=== PATIENT | female | born 1945 | race Caucasian/White ===

== ENCOUNTER 2024-09-17 15:16 | Emergency (ER) | payer OTHER, SELFPAY ==
[2024-09-17 15:28] VITALS: BP 151/85
[2024-09-17 15:45] LABS: % Basophils 0.6 % (0-2); % Eosinophils 2.1 % (0-6); % Immature Granulocytes 0.2 % (0-0.5); % Lymphocytes 21.1 % (20.5-51.1); % Monocytes 5.3 % (1.7-9.3); % Neutrophils 70.7 % (42.2-75.2); Absolute Basophils 0.1 10^3/uL (0-0.2); Absolute Eosinophils 0.2 10^3/uL (0-0.7); Absolute Lymphocytes 1.9 10^3/uL (1.2-3.4); Absolute Monocytes 0.5 10^3/uL (0.1-0.6); Absolute Neutrophils 6.4 10^3/uL (1.4-6.5); Hematocrit 40.3 % (37.0-47.0); Hemoglobin 13.6 g/dL (12.0-16.0); Mean Corp Hgb Conc. 33.7 g/dL (33.0-37.0); Mean Platelet Volume 9.8 fL (7.4-10.4); Nucleated Red Blood Cells % 0 %; Platelet Count 294 10^3/uL (130-400); Red Blood Cell Count 4.53 10^6/uL (4.20-5.40); Red Cell Dist. Width 12.5 % (11.5-14.5)
[2024-09-17 16:04] LABS: ALT (SGPT) 14 U/L (0-35); AST (SGOT) 20 U/L (14-36); Albumin 4.1 g/dl (3.5-5.0); Alkaline Phosphatase 102 U/L (38-126); Carbon Dioxide 29 mmol/L (22-30); Glucose 117 mg/dl (70-99); Total Bilirubin 0.3 mg/dl (0.2-1.3); eGFR > 60.00
[2024-09-17 16:05] LABS: Blood Urea Nitrogen 11 mg/dl (7-17); Chloride 100 mmol/L (98-107); Potassium 3.9 mmol/L (3.5-5.1); Sodium 133 mmol/L (135-145); Total Protein 6.9 g/dl (6.3-8.2)
[2024-09-17 16:38] VITALS: BMI 25.8
--- NOTE | 2024-09-17 16:45 | ED.GENMED ---
History of Present Illness
General
Chief Complaint: Blood Pressure Problem
Source: patient and spouse
Exam Limitations: none
Time Seen by Provider: 09/17/24 16:44
History of Present Illness
History of Present Illness:
Patient woke up this morning feels mildly nauseous. However the last 3 days she has had 3 brief episodes of near syncope. She was standing in her kitchen late morning felt lightheaded. Not describing disequilibrium or vertigo. No diaphoresis no
chest pain no shortness of breath. Symptoms last seconds. She checked her blood pressure shortly after was mildly elevated systolically. The last 2 episodes this happened had normal blood pressures. She also admits to significant anxiety
especially over losing multiple family. Currently she feels fine.
Past History
Past History
ED Past Medical History: Cancer (Thyroid, lung), Hypercholesterolemia and Other (History of diverticulitis, thyroid cancer); Negative HTN, IDDM or NIDDM
ED Past Surgical History: Cholecystectomy, Gynecological (hysterectomy), Orthopedic (Right hip replacement) and Other (Thyroidectomy)
Social History
Tobacco: Non-smoker
Drug: None
Personal:
Living: with family
Employment: Retired
Review of Systems
Review of Systems
All Other Systems: Not applicable
Respiratory: Denies trouble breathing
Cardiac: Denies chest pain or palpitations
ABD/GI: Reports no symptoms
Phy Exam
Physical Exam
Physical Exam:
GENERAL: Alert and oriented in no apparent distress
EYE: Orbits normal.
NECK: Supple, no carotid bruit
ENT: Pharynx without erythema
CARDIAC: Regular rate and rhythm without any obvious murmurs.
LUNGS: Clear breath sounds,normal
ABDOMEN: Soft, without focal tenderness or distention
NEUROLOGICAL: Alert and oriented , cranial nerves II through XII intact. Apcffv-ie-grzo normal. Speech normal.
SKIN: Warm and dry, no rash or lesion, no discoloration, skin intact.
MUSCULOSKELETAL: No edema,no deformity.Good color
PSYCH: Pleasant. Anxious. Crying and upset when talking about her family
Course
Orders/Labs/Results
Orders:
Orders
09/17/24 15:18
Electrocardiogram (*1) Urgent
Reason for Study: Vertigo / Dizzy
EKG- Treatment ONCE
09/17/24 15:34
Complete Blood Count/With Diff Urgent
Comprehensive Metabolic Panel Urgent
09/17/24 16:58
CT Head W/o Iv Contrast Urgent
Comment:
Reason For Exam: Mild headache/dizziness
Cardiac Monitoring- Treatment ONCE
IV Insert/Care/Rem.- Treatment PRN
09/17/24 17:16
Troponin I Urgent
Abnormal Lab Results
09/17/24
15:34
Sodium 133 L mmol/L
(135-145)
Glucose 117 H mg/dl
(70-99)
09/17/24 15:34
09/17/24 15:34
Vital Signs
Initial and Last Documented VS:
Initial Vital Signs
Temp Pulse Resp BP Pulse Ox
98.7 F 82 16 151/85 98
09/17/24 15:28 09/17/24 15:28 09/17/24 15:28 09/17/24 15:28 09/17/24 15:28
Last Documented Vital Signs
Temp Pulse Resp BP Pulse Ox
98.7 F 69 16 139/73 95
09/17/24 15:28 09/17/24 18:00 09/17/24 15:28 09/17/24 18:00 09/17/24 18:00
MDM/Problems Addressed
Differential Diagnosis Includes:
Patient describing very brief episodes of lightheadedness. Symptoms last seconds. She denies chest pain shortness of breath during these episodes. She also denies disequilibrium vertigo etc. Her neurologic exam is normal. Low suspicion that we
will find a definitive etiology for this. Workup in progress
*Radiology
Radiology exam reviewed: radiology read reviewed (Negative CT scan)
*Pulse Oximetry
Patient hypoxic: no
*EKG
Interpreted by ED Provider?: Yes
Interpretation: normal
Comparison EKG: no changes
Heart Rate: 77
Rate: normal
Rhythm: sinus
Lyon: normal axis
Interval: normal interval
QRS Pattern: normal QRS
Ischemia: non-specific ST changes
*Critical Care Note
Total Time (30-74mins, 75-104mins- exclusive of procedures): Not Applicable
Update Note
Update Note:
Patient is remained stable and nontoxic. Exam unremarkable. Neurologic exam unremarkable. No arrhythmias here. states these symptoms last seconds. Discussed inpatient versus outpatient observation. I am comfortable with outpatient
observation as is the family.
ED Attending Note
-
Portions of this chart may have been created with voice recognition software.� Occasional wrong word or��sound alike� substitutions may have occurred due to the inherent limitations of voice recognition software.
Discharge Plan
Departure
Patient Disposition: Home (Routine Discharge)
Date of Disposition: 09/17/24
Time of Disposition: 19:24
Patient with high blood pressure during this ER visit?: Yes
Discharge Problem:
Brief near syncope
Instructions: Near Fainting (DC), BLOOD PRESSURE
Prescriptions:
No Action
levothyroxine 112 MCG tablet
110 mcg PO DAILY@0600
Centrum Silver 1 EACH tablet
1 ea PO DAILY
gabapentin 300 MG capsule
300 mg PO DAILY@1200
lorazepam 1 MG tablet
1.5 mg PO TIDPRN PRN (Reason: breakthrough anxiety)
quetiapine 25 MG tablet
25 mg PO DAILY@2000
venlafaxine 75 mg Tablet
75 mg PO DAILY
pravastatin 40 mg Tablet
40 mg PO DAILY
pantoprazole 20 mg Tablet,Delayed Release (Dr/Ec)
40 mg PO DAILY
Referrals:
Isael Wasserman DO [Family Provider] - Follow up in 2-3 days
Interventions
Interventions:
*Risk Screen - Suicide Last Done: 09/17/24 15:30
*General Assessment Last Done: 09/17/24 16:45
*Neglect/Abuse Screening Last Done: 09/17/24 15:30
ED- Fall Risk Assessment Last Done: 09/17/24 16:44
*ED COVID-19 Vaccine History Last Done: 09/17/24 16:45
ED- Cardiac Assessment Last Done: 09/17/24 16:44
ED- Neurological Assessment Last Done: 09/17/24 16:44
ED- Pulmonary Assessment Last Done: 09/17/24 16:44
Discharge Date and Time
Print Language: GERMAN
[2024-09-17 17:55] LABS: Troponin I < 0.012 ng/ml
[2024-09-17 18:00] VITALS: BP 139/73
[2024-09-17 19:21] VITALS: BP 144/76
== END 2024-09-17 19:58 | disposition home or self-care (01) ==
LOC: EMR 15:16
PROVIDERS: Emergency Medicine; EMERGENCY PHYSICIAN Emergency Medicine; FAMILY PHYSICIAN Family Medicine
DX: R55 Syncope and collapse (principal); F41.9 Anxiety disorder, unspecified; E78.00 Pure hypercholesterolemia, unspecified; Z85.850 Personal history of malignant neoplasm of thyroid; Z90.49 Acquired absence of other specified parts of digestive tract; Z90.710 Acquired absence of both cervix and uterus
CPT/HCPCS: 99284; 70450; 80053; 84484; 85025; 93005

== ENCOUNTER 2024-10-25 10:03 | Inpatient (IN) | payer OTHER, SELFPAY ==
[2024-10-23 22:17] VITALS: BP 99/65
[2024-10-23 22:19] VITALS: BP 99/65
[2024-10-23 22:29] VITALS: BMI 25.4
[2024-10-23 22:47] LABS: % Basophils 0.6 % (0-2); % Eosinophils 1.1 % (0-6); % Immature Granulocytes 0.3 % (0-0.5); % Lymphocytes 22.1 % (20.5-51.1); % Monocytes 5.8 % (1.7-9.3); % Neutrophils 70.1 % (42.2-75.2); Absolute Basophils 0.1 10^3/uL (0-0.2); Absolute Eosinophils 0.1 10^3/uL (0-0.7); Absolute Monocytes 0.5 10^3/uL (0.1-0.6); Absolute Neutrophils 6.3 10^3/uL (1.4-6.5); Hematocrit 35.7 % (37.0-47.0); Hemoglobin 12.3 g/dL (12.0-16.0); Mean Corp Hgb Conc. 34.5 g/dL (33.0-37.0); Mean Corpuscular Hgb 30.1 pg (27.0-31.0); Mean Corpuscular Volume 87.5 fL (81.0-99.0); Mean Platelet Volume 10.5 fL (7.4-10.4); Nucleated Red Blood Cells % 0 %; Platelet Count 237 10^3/uL (130-400); Red Blood Cell Count 4.08 10^6/uL (4.20-5.40); Red Cell Dist. Width 12.8 % (11.5-14.5)
[2024-10-23 22:59] LABS: ALT (SGPT) 12 U/L (0-35); AST (SGOT) 18 U/L (14-36); Albumin 3.8 g/dl (3.5-5.0); Alkaline Phosphatase 74 U/L (38-126); Blood Urea Nitrogen 11 mg/dl (7-17); Calcium 8.7 mg/dl (8.4-10.2); Carbon Dioxide 23 mmol/L (22-30); Chloride 100 mmol/L (98-107); Estimated Creatinine Clearance 52 ml/min; Glucose 139 mg/dl (70-99); Lipase 47 U/L (23-300); Potassium 3.5 mmol/L (3.5-5.1); Sodium 131 mmol/L (135-145); Total Bilirubin 0.8 mg/dl (0.2-1.3); eGFR > 60.00
[2024-10-23 23:00] VITALS: BP 112/60
[2024-10-23 23:04] LABS: Urine Albumin 2+ (Neg - Trace); Urine Bilirubin Negative (Negative); Urine Character Clear (Clear); Urine Color Yellow; Urine Glucose Negative (Negative); Urine Ketone 2+ (Negative); Urine Leukocyte Negative (Negative); Urine Nitrite Negative (Negative); Urine Occult Blood Negative (Negative); Urine Urobilinogen Negative (Neg - 1+); Urine pH 6.5 (5.0-9.0)
[2024-10-23 23:13] LABS: Urine Hyaline Cast >15 /LPF (0-2)
[2024-10-23 23:14] LABS: Urine Bacteria Few (Negative); Urine Red Blood Cell 0-2 /HPF (0-2)
[2024-10-24] VITALS (23 sets, daily range): BP systolic 94–128; BP diastolic 48–87; PULSE 71–75; BMI 25.3
[2024-10-24] MEDS: TORADOL 15 MG IV (00:47)
[2024-10-24] MEDS: NSS 1000 IV ×2 (00:47→04:54)
[2024-10-24] MEDS: ATIVAN 1 MG IV (01:41)
--- NOTE | 2024-10-24 01:49 | ED.GENMED ---
History of Present Illness
General
Chief Complaint: Abdominal Symptoms
Source: patient and spouse
Exam Limitations: none
Time Seen by Provider: 10/24/24 00:08
Nursing documentation reviewed up to this point in time: agreed with
History of Present Illness
History of Present Illness:
Patient to ED with complaint of upper abdominal pain. Pain started approx 2 weeks ago and continues to worsen. She has a known pancreatic cyst and is concerned that she now has cancer. SHe participates yearly surveillance of the cyst, reports no
changes in 2 years (Last MRI approx 3 mos ago). Spouse states pateint has been extremely anxious. Has not been eating or drinking for the past few days. Tonight reports vomiting and diarrhea. Denies fever/chills. Brought to ED by spouse for
eval.
Past History
Past History
ED Past Medical History: Cancer (Thyroid, lung), Hypercholesterolemia and Other (History of diverticulitis, thyroid cancer); Negative HTN, IDDM or NIDDM
ED Past Surgical History: Cholecystectomy, Gynecological (hysterectomy), Orthopedic (Right hip replacement) and Other (Thyroidectomy)
Social History
Tobacco: Non-smoker
Drug: None
Personal:
Living: with family
Employment: Retired
Review of Systems
Review of Systems
Allergies reviewed?: Yes
All Other Systems: ROS reviewed and negative except as documented in HPI and ROS
Constitutional: Reports no symptoms
EENT: Reports no symptoms
Respiratory: Reports no symptoms
Cardiac: Reports no symptoms
ABD/GI: Reports abdominal pain, nausea, vomiting and diarrhea
: Reports no symptoms
Musculoskeletal: Reports no symptoms
Skin: Reports no symptoms
Neurological: Reports no symptoms
Psychiatric: Reports depression and anxiety
Phy Exam
General Physical Exam
General Presentation: moderate distress
General age: appears stated age
General Skin: warm and dry
General Habitus: normal
General Mental: alert
Cardiovascular Exam
Cardiovascular Exam: regular rate/rhythm and no edema
Pulmonary Exam
Pulmonary Exam: lungs clear and no respiratory distress
Gastrointestinal Exam
Gastrointestinal Exam: normal bowel sounds, soft, no organomegaly, no pulsatile mass, non distended and no cva tenderness
Palpation: left upper quadrant: Moderate tenderness, left lower quadrant: No tenderness, right upper quadrant: Moderate tenderness and right lower quadrant: No tenderness
Musculoskeletal Exam
Musculoskeletal Exam: full ROM and neuro vasc intact
Skin Exam
Skin Exam: normal color, warm/dry and no rash
Psychiatric Exam
Psychiatric Exam: normal mood/affect
Course
Orders/Labs/Results
Orders:
Orders
10/23/24 22:17
EKG [Electrocardiogram (*1)] Urgent
Reason for Study: Fatigue / Weakness
10/23/24 22:18
EKG- Treatment ONCE
IV Insert/Care/Rem.- Treatment PRN
Straight cath- Treatment ONCE
10/23/24 22:36
Complete Blood Count/With Diff Urgent
Comprehensive Metabolic Panel Urgent
Lipase Urgent
UA Reflex to Culture [Urinalysis Reflex To Culture] Urgent
Date Specimen was Collected: 10/23/24
Time Specimen was Collected: 22:34
Urine Microscopic Reflex Cult Urgent
10/24/24 00:34
CT Abd/pelvis W Iv Cont Urgent
Comment:
Reason For Exam: upper abd. pain. known pancreatic cyst
10/24/24 00:36
0.9% Sodium Chloride 1000 ml [Nss] 1,000 ml IV BOLUS
Ketorolac [Toradol] 15 mg IV NOW STA
10/24/24 01:38
Lorazepam [Ativan] 2 mg .ROUTE .STK-MED ONE
10/24/24 01:40
Lorazepam [Ativan] 1 mg IV NOW STA
10/24/24 02:45
Norovirus by PCR Urgent
SHELIA Source: Feces/Stool
Specimen Description:
STOOL [C difficile Antigen & Toxins] Urgent
SHELIA Source: Feces/Stool
Specimen Description:
Stool Culture Urgent
SHELIA Source: Feces/Stool
Specimen Description:
10/24/24 04:08
Admit/Transfer Patient As Directed
Co-Sign Provider:
Level of Care: Observation services
Assign to:: Medical/Surgical
Physician / Group: hospitalist
Diagnosis: gastritis
PRN Pain Medication Management As Directed
May give lesser potent ordered pain med per pt: Yes
preference::
Protocol:: Medication orders for pain may be administered in a
manner that supports deferring to patient preference
when the pt is:
- Requesting an ordered lesser potent pain medication.
Least to most potent pain medications are defined
as: acetaminophen < NSAID < tramadol < opioids
(morphine, oxycodone, hydromorphone).
- Requesting a lesser dose of the same medication IF
ORDERED.
- Requesting a less intrusive route of administration
if both routes are prescribed by the provider (PO <
IV).
10/24/24 04:09
Code Status As Directed
Resuscitation Status: Full Code
10/24/24 04:13
Famotidine [Pepcid] 20 mg IV NOW STA
Ondansetron Injectable [Zofran] 4 mg IV NOW STA
10/24/24 04:14
Mag Hydrox/Al Hydrox/Simeth [Maalox] 30 ml PO NOW STA
10/24/24 04:29
0.9% Sodium Chloride 1000 ml [Nss] 1,000 ml IV 80 mls/hr
Acetaminophen [Tylenol] 650 mg PO Q4HPRN PRN
Docusate W/Senna [Senokot-S] 1 tablet PO BIDPRN PRN
Lorazepam [Ativan] 2 mg PO DAILY PRN
Mag Hydrox/Al Hydrox/Simeth [Maalox] 30 ml PO Q6HPRN PRN
Ondansetron Injectable [Zofran] 4 mg IV Q6HPRN PRN
10/24/24 04:29
Activity As Directed
Activity Level: With Assistance
Orthostatic Vital Signs As Directed
Orthostatic VS Frequency: Daily
Vital Signs As Directed
Frequency: Per unit guidelines
Pt Eval And Treat Routine
Activity Level: With Assistance
DX Deep Vein Thrombosis Video Routine
10/24/24 05:00
Flush (0.9% Sodium Chloride) [Flush (Nss)] See Dose Instructions IV PER PROTOCOL
10/24/24 05:04
Basic Metabolic Panel IN AM
TSH IN AM
10/24/24 Breakfast
Regular
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
Levothyroxine [Synthroid] 100 mcg PO DAILY @ 0600
10/24/24 08:00
Pantoprazole [Protonix] 40 mg PO DAILY
Pravastatin Sodium [Pravachol] 40 mg PO DAILY
Venlafaxine [Effexor] 112.5 mg PO DAILY
10/24/24 18:00
Enoxaparin Sodium [Lovenox] 40 mg SC QPM
10/24/24 20:00
Quetiapine Fumarate [Seroquel] 25 mg PO DAILY@2000
10/24/24 22:00
Famotidine [Pepcid] 20 mg PO HS
Abnormal Lab Results
10/23/24
22:36
RBC 4.08 L 10^6/uL
(4.20-5.40)
Hct 35.7 L %
(37.0-47.0)
MPV 10.5 H fL
(7.4-10.4)
Sodium 131 L mmol/L
(135-145)
Glucose 139 H mg/dl
(70-99)
Total Protein 6.0 L g/dl
(6.3-8.2)
Urine Ketones 2+ A
(Negative)
Urine Bacteria (Reflex) Few A
(Negative)
Urine Albumin (Reflex) 2+ A
(Neg - Trace)
10/23/24 22:36
10/23/24 22:36
Vital Signs
Initial and Last Documented VS:
Initial Vital Signs
Pulse Resp Pulse Ox
64 16 97
10/23/24 22:11 10/23/24 22:11 10/23/24 22:11
Last Documented Vital Signs
Temp Pulse Resp BP Pulse Ox
98.0 F 66 18 128/60 95
10/24/24 23:18 10/24/24 23:18 10/24/24 23:18 10/24/24 23:18 10/24/24 23:18
*Radiology
Radiology exam reviewed: radiology read reviewed
*Pulse Oximetry
Patient hypoxic: no
*Critical Care Note
Total Time (30-74mins, 75-104mins- exclusive of procedures): Not Applicable
Update Note
Update Note:
Patient to ED iwth complaint of upper abd. pain, n/v/d. Denies fever/chills. SHe remains afebrile. CT report reviewed - colitis. Pancreatic cyst is unchanged. Discussed findings with patient. Given IVF in ED with improvement in blood
pressure. Willl admit to hospitalist service for dehydration, weakness, colitis.
ED Attending Note
-
Portions of this chart may have been created with voice recognition software.� Occasional wrong word or��sound alike� substitutions may have occurred due to the inherent limitations of voice recognition software.
Discharge Plan
Departure
Patient Disposition: Admit
Date of Disposition: 10/24/24
Time of Disposition: 02:42
Presentation/result/management discussed w/ accepting MD/DO: Hospitalist
Patient with high blood pressure during this ER visit?: No
Condition: Fair
Covid-19: Not Applicable
Discharge Problem:
Weakness, Colitis, Dehydration
Interventions
Interventions:
*Risk Screen - Suicide Last Done: 10/23/24 22:19
*General Assessment Last Done: 10/23/24 22:30
*Neglect/Abuse Screening Last Done: 10/23/24 22:30
*ED- Fall Risk Assessment Last Done: 10/23/24 22:30
*ED COVID-19 Vaccine History Last Done: 10/23/24 22:30
*Nursing Disposition Last Done: 10/24/24 15:45
LI-Ejlpli-Vjejsfoffa Assessment Last Done: 10/24/24 08:25
Discharge Date and Time
Discharge Date/Time: 10/24/24 15:46
--- NOTE | 2024-10-24 03:52 | HPS.HSE ---
Family Physician
-
Family Physician: Isael Wasserman
Chief Complaint
-
abd pain, nausea and vomiting and weakness
History of Present Illness
This is a 79-year-old female with past medical history of hypothyroid, anxiety and depression, hyperlipidemia and GERD who was diagnosed with a pancreatic cyst several years ago and recently had enlargement in the cyst with pending workup presents
to the emergency department from home with 1 day of vomiting in the setting of several days of nausea.
Patient came to the emergency department by spouse because she felt very weak and could not get up. Spouse found collapsed while on the commode and could not get off so EMS was called and patient was brought to the emergency department. Patient
does have reported that she had 2 episode of clear vomitus over the last 24 hours. She says she has not had vomiting before. She denies diarrhea. She reports some mild epigastric discomfort without any radiation. She reports chronic nausea that
has been present for some time. She stated that due to her recent diagnosis of enlarged primary cyst on CT scan she appears to have decreased appetite and increased anxiety. Psychiatrist increased her venlafaxine to 150 mg daily due to episodes of
breakthrough anxiety. Patient reported that she started having the vomiting after increasing the dose and she was told to decrease it yesterday.
She denies fevers chills. She denies any urinary symptoms. She denies any other changes in medications. She denies any numbness tingling in the lower extremities or upper extremities. She denies any lower extremity swelling. She denies any new
back pain.
In the emergency department she was afebrile, blood pressure was 99/60 with a pulse of 64. CBC was unremarkable. Electrolytes notable for a sodium of 131 but otherwise unremarkable. She has normal BUN and creatinine and normal glucose. UA was
unremarkable. LFTs and lipase within normal limits. CT A/P with wall thickening in the colon is likely due to underdistention however correlate for any signs of colitis. Colonic diverticulosis without evidence of diverticulitis. No bowel
obstruction, normal appendix. Unchanged cyst in the pancreas.
Medical History
Past Medical History
Past Medical History: Reports Cancer (History of lung cancer status post right lower lobectomy 2017, history of thyroid cancer status post thyroidectomy 2014), Hypothyroidism and Psychiatric (Anxiety/depression)
Past Surgical History: Reports Cholecystectomy, Gynocological (Complete hysterectomy), Orthopedic (Right total hip arthroplasty) and Other (Lower right lobectomy, and left breast biopsy, diabetes septum surgery, thyroidectomy)
Social History
Tobacco: Non-smoker
Alcohol: None
Drug: None
Personal:
Living: With Family
Family History
Family History: Not pertinent
Allergies / Home Medications
Allergies reflects when Allergies were last updated in [employer].
Home Medications with original date entered in [employer]
Allergy/Medication List:
Allergies
Allergy/AdvReac Type Severity Reaction Status Date / Time
hydrocodone Allergy Nausea / Verified 01/02/22 12:25
Vomiting
levofloxacin [From Levaquin] Allergy Unknown Verified 01/02/22 12:25
morphine Allergy Nausea / Verified 01/02/22 12:25
Vomiting
paroxetine [From Paxil] AdvReac anxiety Verified 01/02/22 12:25
Home Medications
xtsondjf-dsg-vnekj acid 0.4 mg-lycopene 300 mcg-lutein 250 mcg tablet (Centrum Silver) 1 ea PO DAILY 10/31/16
lorazepam 1 mg tablet 2 mg PO PRN PRN breakthrough anxiety 05/18/18
quetiapine 25 mg tablet 25 mg PO DAILY@199905/18/18
pantoprazole 20 mg tablet,delayed release 40 mg PO DAILY 09/17/24
pravastatin 40 mg tablet 40 mg PO DAILY 09/17/24
venlafaxine 75 mg tablet 112.5 mg PO DAILY 09/17/24
cholecalciferol (vitamin D3) 50 mcg (2,000 unit) tablet (Vitamin D3) 2,000 unit DAILY 10/24/24
d-mannose 500 mg capsule 500 mg PO DAILY 10/24/24
levothyroxine 100 mcg tablet 100 mcg DAILY 10/24/24
Review of Systems
-
History Source: Patient
Constitutional: Reports Fatigue
EENT: Reports No Symptoms
Respiratory: Reports No Symptoms
Cardiac: Reports No Symptoms
Abdomen/GI: Reports Abdominal Pain, Nausea and Vomiting; Denies Diarrhea or Constipated
: Denies Dysuria, Frequency or Flank Pain
Musculoskeletal: Reports No Symptoms
Skin: Reports No Symptoms
Neurological: Reports No Symptoms
Endocrine: Reports No Symptoms
Hematologic/Lymphatic: Reports No Symptoms
Psych: Reports No Symptoms
Physical Exam
Vital Signs
Vital Signs
Temp Pulse Resp BP Pulse Ox
97 F 64 16 99/57 92
10/23/24 22:19 10/24/24 03:00 10/24/24 03:00 10/24/24 03:00 10/24/24 03:00
Physical Exam
General: Well Developed, No Apparent Distress, Comfortable and Conversant
HEENT: NormoCephalic, Anicteric, Moist mucous membranes, Atraumatic, PERRLA and No Ptosis
Respiratory: Clear
Cardiac: S1/S2 and Regular Rhythm
Breast: Deferred by me
GI: Non Tender, Non Distended and Normal Bowel Sounds
Rectal: Deferred by Provider
Genito-urinary: Deferred by me
Musculoskeletal: No Cyanosis and No Edema
Skin: Warm and Dry
Neuro: AO x 3, Cranial Nerves Intact, No Sensory Deficits and Other (4/5 strength in bilateral hips, normal strength in knees and ankles. Normal upper extremity strength); No Slurred Speech or Facial Droop
Hematologic/Lymphatic: No Lymphadenopathy
Psych: Depressed
Laboratory Results
-
10/23/24 22:36
10/23/24 22:36
Laboratory Results
Total Bilirubin 0.8 mg/dl (0.2-1.3) 10/23/24 22:36
AST 18 U/L (14-36) 10/23/24 22:36
ALT 12 U/L (0-35) 10/23/24 22:36
Alkaline Phosphatase 74 U/L (38-126) 10/23/24 22:36
Lipase 47 U/L (23-300) 10/23/24 22:36
Data Reviewed
-
CT Scan: Report Reviewed by me
Lab Data: Labs Reviewed by me
Old Records: Reviewed
Impression/Plan
-
IMPRESSION:
79 y.o with ongoing anxiety depression in setting of concern for another cancer after going through prior cancers. She reports that she has a pancreatic cyst that was enlarged about 2 years ago and has a pending endoscopic biopsy given sister had
pancreatic cancer and recently. She had increased dose of her venlafaxine with worsening vomiting (vomited x 2) then weakness tonight. Her labs are notable for Na of 131 but otherwise unremarkable. U/A negative. CT scan shows no
change in pancreatic cystic lesion and no other acute intraabdominal finding. She denies diarrhea. Suspect depression with some dehydration. She is not interested in PT as she had prior PT.
PLAN:
1. Nausea/Vomiting - Suspect gastritis posssibly exacerbated by venlafaxine
- check ecg
- admit to med/surg observation
- antiemetics, H2 blockade
- continue ppi
- pain control
- diet as tolerated
- IV fluids for now
- reduced dose of venlafaxine to 112.5 for now per her outpatient psychiatric
2. Weakness - suspect dehydration possibly induced by nausea and loss of appetite from depression. No signs of acute infection.
- check orthostatics
- IV fluids as above
- check tsh
- PT evaluation
3. Anxiety/Depression
- continue venlafaxine 112.5
- continue quetiapine and lorazepam
DVT PPX - lovenox sq
Code status - Full Code
[2024-10-24] MEDS: ZOFRAN 4 MG IV ×2 (04:26→07:35)
[2024-10-24] MEDS: PEPCID 20 MG IV (04:27)
[2024-10-24] MEDS: MAALOX 30 ML PO ×2 (04:27→07:36)
[2024-10-24] MEDS: TYLENOL 650 MG PO ×3 (04:55→20:25)
[2024-10-24] MEDS: SYNTHROID 100 MCG PO (06:29)
[2024-10-24 06:39] LABS: Blood Urea Nitrogen 9 mg/dl (7-17); Calcium 7.7 mg/dl (8.4-10.2); Carbon Dioxide 23 mmol/L (22-30); Chloride 104 mmol/L (98-107); Estimated Creatinine Clearance 61 ml/min; Glucose 102 mg/dl (70-99); Potassium 3.8 mmol/L (3.5-5.1); Sodium 133 mmol/L (135-145); eGFR > 60.00
[2024-10-24 07:10] LABS: TSH 1.06 uIU/ml (0.47-4.68)
[2024-10-24] MEDS: PROTONIX 40 MG PO (07:35)
[2024-10-24] MEDS: PRAVACHOL PO ×2 (07:35→08:24)
[2024-10-24] MEDS: ATIVAN PO (07:35)
[2024-10-24] MEDS: ATIVAN 1 MG PO ×3 (07:56→18:22)
[2024-10-24] MEDS: EFFEXOR XR 75 MG PO (10:55)
--- NOTE | 2024-10-24 12:31 | CON.GI ---
Addendum entered and electronically signed by Ravi Vuong MD 10/24/24 14:47:
Patient seen and examined, agree with nurse practitioner note. The patient is an 79-year-old female with past medical history as noted with vomiting and diarrhea. She presents with acute onset of vomiting and diarrhea, with associated crampy
abdominal pain. Upon presentation she was noted to have no leukocytosis or anemia, no fever, CT scan suggested possible pancolitis. Since here she has not had any further episodes of vomiting or diarrhea and is feeling much better overall. She
has not had any symptoms prior to this and have been feeling well. She follows with at [facility] for known pancreatic cyst which appears similar on this CT scan. Her last colonoscopy was at [facility] 2 years ago with polyps by report. She
currently denies any chest pain, shortness of breath, fever or chills. On exam she has minimal left-sided tenderness though no rebound or guarding.
1. Vomiting/diarrhea: With probable colitis on CT scan, consistent with infectious enterocolitis. At this point will await stool studies including norovirus and continue supportive care including dietary modifications, antiemetics as needed and IV
fluids. Assuming her clinical course continues to improve likely able to discharge tomorrow if tolerating diet.
Original Note:
Consultation
-
Date/Time Consultation Requested: 10/24/24 1130
Date/Time Consultation Performed: 10/24/24 1230
Requesting Provider: Arvind Alva MD
Performing Provider: JIMMIE High, Carlito Vuong MD
Reason for Consultation: colitis
Medical History
Chief Complaint / HPI
Chief Complaint: nausea, vomiting and diarrhea
History of Present Illness:
Pt is a 79yo with hx thyroid and lung CA, hypercholesterolemia, known pancreatic cyst wit prior EUS at [facility] about 2 years ago with recent issues with increased depression with adjustment of Effexor. She admits to chronically taking Effexor
75mg daily then increased to 112.5mg 2 weeks ago. In review with family pt was doing ok on Wednesday then yesterday began with nausea/vomiting bilious emesis with abdominal pain and non bloody diarrhea. On admission noted with CT with mild acute
pancolitis probable infectious etiology vs underdistention, diverticulosis, 1.7cm pancreatic cyst no change from 2021 possible IPMN, calcific atherosclerosis, mild biliary dilatation without mass, prior george, renal angiomyolipoma, DDD, L1 fx- new.
At this time patient denies any recent travel, abx or sick contacts. She has some chronic GERD on Protonix daily and occasional constipation. She otherwise denies dysphagia, odynophagia, or rectal bleeding. Last EGD about 2 years ago with
? EUS and colonoscopy [address] Calderon with polyps.
Past Medical History
Past Medical History: Cancer (lung CA with prior lobectomy 2016, thyroid CA with thyroidectomy 2014, ), Hypothyroidism and Psychiatric (anxiety/depressionn )
Social History
Tobacco: Non-Smoker
Alcohol: None
Drug: None
Personal:
Living: With Family
Employment: Retired
Family History
Family History: Reviewed & Not Pertinent
Allergies / Home Medications
Allergy/AdvReac Type Severity Reaction Status Date / Time
hydrocodone Allergy Nausea / Verified 01/02/22 12:25
Vomiting
levofloxacin [From Levaquin] Allergy Unknown Verified 01/02/22 12:25
morphine Allergy Nausea / Verified 01/02/22 12:25
Vomiting
paroxetine [From Paxil] AdvReac anxiety Verified 01/02/22 12:25
�Medication �Instructions �Recorded
lorazepam 1 mg tablet 1 mg PO DAILY@0600 05/18/18
quetiapine 25 mg tablet 25 mg PO HS 05/18/18
pantoprazole 20 mg tablet,delayed 40 mg PO DAILY 09/17/24
release
pravastatin 40 mg tablet 40 mg PO QPM 09/17/24
acetaminophen 500 mg tablet 1,000 mg PO Q6HPRN PRN back pains 10/24/24
(Tylenol Extra Strength)
cholecalciferol (vitamin D3) 50 2,000 unit DAILY 10/24/24
mcg (2,000 unit) tablet (Vitamin
D3)
d-mannose 500 mg capsule 1,000 mg PO DAILY 10/24/24
estradiol 0.01% (0.1 mg/gram) 1 appful vaginal MOWEFR@199910/24/24
vaginal cream (Estrace)
levothyroxine 100 mcg tablet 100 mcg PO DAILY@0600 10/24/24
lorazepam 1 mg tablet 1 mg PO BIDPRN PRN axniety 10/24/24
sennosides 8.6 mg tablet (Senokot) 8.6 mg PO HSPRN PRN constipation 10/24/24
therapeutic multivitamin 1 tab PO DAILY 10/24/24
venlafaxine 75 mg capsule,extended 75 mg PO DAILY 10/24/24
release 24 hr (Effexor XR)
Review of Systems
-
History Source: Patient and Family
Constitutional: Reports No Symptoms
EENT: Reports No Symptoms
Abdomen/GI: Reports Abdominal Pain, Nausea, Vomiting, Diarrhea and Constipated (occasional chronic )
: Reports Other (hx chronic UTI on Diamose )
Musculoskeletal: Reports No Symptoms
Skin: Reports No Symptoms
Neurological: Reports Weakness
Endocrine: Reports No Symptoms
Hematologic/Lymphatic: Reports No Symptoms
Vital Signs
Temp Pulse Resp BP Pulse Ox
97 F 68 20 106/82 95
10/23/24 22:19 10/24/24 12:00 10/24/24 12:00 10/24/24 12:00 10/24/24 04:00
Physical Exam
Exam
General: Well Developed, Well Nourished and No Apparent Distress
HEENT: Normocephalic and Anicteric
Respiratory: Clear
Cardiac: Regular Rhythm
GI: Soft, Non Distended and Tender (left upper abdomen )
Musculoskeletal: No Clubbing and No Cyanosis
Skin: Warm and Dry
Neuro: Awake, Alert and AO x 3
Psych: Calm
Results
WBC 9.0 10^3/uL (4.8-10.8) 10/23/24 22:36
Hgb 12.3 g/dL (12.0-16.0) 10/23/24 22:36
Hct 35.7 % (37.0-47.0) L 10/23/24 22:36
MCV 87.5 fL (81.0-99.0) 10/23/24 22:36
Plt Count 237 10^3/uL (130-400) 10/23/24 22:36
Absolute Neuts (auto) 6.3 10^3/uL (1.4-6.5) 10/23/24 22:36
Sodium 133 mmol/L (135-145) L 10/24/24 05:04
Potassium 3.8 mmol/L (3.5-5.1) 10/24/24 05:04
Chloride 104 mmol/L (98-107) 10/24/24 05:04
Carbon Dioxide 23 mmol/L (22-30) 10/24/24 05:04
BUN 9 mg/dl (7-17) 10/24/24 05:04
Creatinine 0.5 mg/dL (0.6-1.0) L 10/24/24 05:04
Calcium 7.7 mg/dl (8.4-10.2) L 10/24/24 05:04
Total Bilirubin 0.8 mg/dl (0.2-1.3) 10/23/24 22:36
AST 18 U/L (14-36) 10/23/24 22:36
ALT 12 U/L (0-35) 10/23/24 22:36
Alkaline Phosphatase 74 U/L (38-126) 10/23/24 22:36
Lipase 47 U/L (23-300) 10/23/24 22:36
Diagnostic Image Results:
10/24/24 CT Abd/pelvis W Iv Cont
1. MILD ACUTE PANCOLITIS (probably infectious in etiology). Under distention of the colonic lumen is an alternative diagnostic possibility for the mild diffuse colonic wall thickening.
2. Severe diverticulosis in the sigmoid colon.
3. 1.7 cm PANCREATIC CYST which does not appear to have enlarged since 01/02/2022 and is probably a cystic pancreatic tumor (possibly an intraductal papillary mucinous neoplasm - IPMN).
4. Severe calcific atherosclerotic plaque in the abdominal aorta.
5. Mild biliary dilatation without evidence for obstructing mass.
6. Previous cholecystectomy and hysterectomy.
7. 1.0 cm left renal angiomyolipoma.
8. Severe multilevel facet joint arthrosis in the lower lumbar spine with multilevel anterolistheses.
9. Moderate left convex curvature of the thoracolumbar junction with severe discogenic degenerative disease at L1/L2.
10. Superior endplate fracture of L1 with mild to moderate loss of vertebral body height which appears new from 01/02/2022.
Prior GI Procedures:
EGD: last 2 years ago with EUS [facility]
Colonoscopy: last [address] Calderon with polyps
Assessment / Plan
-
Pt is a 79yo with hx thyroid and lung CA, hypercholesterolemia, known pancreatic cyst wit prior EUS at [facility] about 2 years ago with recent issues with increased depression with adjustment of Effexor. She admits to chronically taking Effexor
75mg daily then increased to 112.5mg 2 weeks ago. In review with family pt was doing ok on Wednesday then yesterday began with nausea/vomiting bilious emesis with abdominal pain and non bloody diarrhea. On admission noted with CT with mild acute
pancolitis probable infectious etiology vs underdistention, diverticulosis, 1.7cm pancreatic cyst no change from 2021 possible IPMN, calcific atherosclerosis, mild biliary dilatation without mass, prior george, renal angiomyolipoma, DDD, L1 fx- new.
-nausea/vomiting/ abdominal pain/diarrhea
-weakness
-hyponatremia
-hypotension on admission
-recent titration up of Effexor with anxiety/depression issues
-known pancreatic cyst no change since 2022
-mild biliary dilatation on CT with normal LFT's on admission
-new from 2021 L1 fx on imaging
other med problems:
-thyroid/lung CA
-hypercholesterolemia
PLAN:
etiology of symptoms with pancolitis on imaging related to infectious etiology with nausea/vomiting/abdominal pain and diarrhea such as norvirus vs medication related vs other
check stool studies
reviewed side effects of Effexor with recent increased dosing noted with hyponatremia, 9% constipation, 8 % diarrhea, 4 % vomiting
pt also with some Left upper abdominal pain into back but not in distribution L1 with noted L1 fx on imaging
cont diet as tolerated
abx held for now without fever or leukocytosis
pain control per hospitalist
cont Effexor dosing per hospitalist currently back to chronic dose of 75mg daily
family updated at bedside
OP follow with Dr. Calderon
-
-
Thank you for consultation and allowing me to participate in the patient's care. Please call the [facility] dispatcher GI physician during the after hours with any questions or concerns.
--- NOTE | 2024-10-24 17:12 | PTCARENOTE ---
pt admit form ED. states no pain or nausea. ivf running as ordered. pt does state she feels weak and is anxious from her recent cancer diagnosis.
[2024-10-24] MEDS: SEROQUEL 25 MG PO (18:22)
[2024-10-24] MEDS: LOVENOX 40 MG SC (18:22)
[2024-10-24] MEDS: D5/0.9% SODIUM CHLORIDE 1000 IV (18:22)
[2024-10-24] MEDS: PEPCID 20 MG PO (21:26)
[2024-10-25] MEDS: ZOFRAN 4 MG IV ×2 (02:00→10:46)
[2024-10-25] MEDS: ATIVAN 1 MG PO (02:24)
--- NOTE | 2024-10-25 02:30 | PTCARENOTE ---
Pt oob to br, c/o nausea and weakness. Pt disoriented, repeating several questions. Pt sitting in br, and dry heaving into emesis basin. Pt voided small amount of urine. Assisted Pt back to bed, states 'Why are you all treating me like I am in a
snf? You sound like a warden.' Bed alarm in place. Pt states 'Who ordered this bag of fluids? I need to talk to them, I want my .' Re-oriented Pt to time and place. Medicated with prn zofran and ativan. Call [facility] within reach.
[2024-10-25] MEDS: SYNTHROID 100 MCG PO (04:58)
--- NOTE | 2024-10-25 05:47 | W.PN.GI.CBS2 ---
Today's Communication / Plan
-
Please see assessment and plan for details.
Assessment / Plan
-
1. Vomiting/diarrhea: Acute, with colitis noted on CT scan, though nontoxic-appearing, no leukocytosis or fever, no further diarrhea overnight, overall improved, likely infectious. At this point will await morning labs, and if okay and tolerating
breakfast is okay to DC from a GI standpoint. If further significant diarrhea then will await stool studies that has been doing okay so far.
Subjective
Subjective
Date of Service: October 25, 2024
Patient feeling okay, tolerated diet with some minimal left lower quadrant discomfort, no vomiting, fever, chills. No diarrhea or bowel movements overnight.
Objective
Data Reviewed
Laboratory Data:
Laboratory Results
10/23/24 22:36
10/24/24 05:04
Laboratory Results
Total Bilirubin 0.8 mg/dl (0.2-1.3) 10/23/24 22:36
AST 18 U/L (14-36) 10/23/24 22:36
ALT 12 U/L (0-35) 10/23/24 22:36
Alkaline Phosphatase 74 U/L (38-126) 10/23/24 22:36
Lipase 47 U/L (23-300) 10/23/24 22:36
Vital Signs and I&O:
Vital Signs
Temp Pulse Resp BP Pulse Ox
98.0 F 66 18 128/60 95
10/24/24 23:18 10/24/24 23:18 10/24/24 23:18 10/24/24 23:18 10/24/24 23:18
I&O
10/23/24 10/24/24 10/25/24
06:59 06:59 06:59
Intake Total 800 / 800
Balance 800 / 800
Physical Exam
Physical Exam
General: NAD
Abdomen: normal bowel sounds, soft, no tenderness, no masses or bruits, no ascites
--- NOTE | 2024-10-25 05:59 | DOWNTIME ---
There was a [facility] Client Director Of Anesthesia Services Downtime on 10/25/2024 from 0100 to 10/26/2023 at 0420 . Downtime documentation of patient's care, including medication administrations, has been reconciled in the electronic record per guidelines. Refer to the
patient's paper chart under the miscellaneous tab to see printed paper medication records and downtime forms.
[2024-10-25 07:26] LABS: % Basophils 0.4 % (0-2); % Eosinophils 0.5 % (0-6); % Immature Granulocytes 0.4 % (0-0.5); % Lymphocytes 16.2 % (20.5-51.1); % Monocytes 5.4 % (1.7-9.3); % Neutrophils 77.1 % (42.2-75.2); Absolute Eosinophils 0.1 10^3/uL (0-0.7); Absolute Lymphocytes 1.5 10^3/uL (1.2-3.4); Absolute Monocytes 0.5 10^3/uL (0.1-0.6); Absolute Neutrophils 7.3 10^3/uL (1.4-6.5); Hematocrit 38.3 % (37.0-47.0); Mean Corp Hgb Conc. 33.9 g/dL (33.0-37.0); Mean Corpuscular Hgb 29.4 pg (27.0-31.0); Mean Corpuscular Volume 86.7 fL (81.0-99.0); Mean Platelet Volume 10.2 fL (7.4-10.4); Nucleated Red Blood Cells % 0 %; Platelet Count 253 10^3/uL (130-400); Red Blood Cell Count 4.42 10^6/uL (4.20-5.40); Red Cell Dist. Width 12.8 % (11.5-14.5); White Blood Cell Count 9.4 10^3/uL (4.8-10.8)
[2024-10-25 07:37] VITALS: BP 137/66
[2024-10-25] MEDS: PROTONIX 40 MG PO (07:48)
[2024-10-25] MEDS: PRAVACHOL 40 MG PO (07:49)
[2024-10-25] MEDS: EFFEXOR XR 75 MG PO (07:49)
[2024-10-25 07:56] VITALS: BP 136/68; BP 142/68; BP 143/73; PULSE 62; PULSE 64; PULSE 67
[2024-10-25 08:10] LABS: Blood Urea Nitrogen 5 mg/dl (7-17); Calcium 8.6 mg/dl (8.4-10.2); Carbon Dioxide 25 mmol/L (22-30); Chloride 102 mmol/L (98-107); Estimated Creatinine Clearance 61 ml/min; Glucose 90 mg/dl (70-99); Potassium 3.9 mmol/L (3.5-5.1); Sodium 138 mmol/L (135-145); eGFR > 60.00
--- NOTE | 2024-10-25 10:27 | W.PN.HOSP.TC ---
Today's Communication/Plan
-
DC
Assessment / Plan
Assessment / Plan
IMPRESSION:
79 y.o with ongoing anxiety depression in setting of concern for another cancer after going through prior cancers. She reports that she has a pancreatic cyst that was enlarged about 2 years ago and has a pending endoscopic biopsy given sister had
pancreatic cancer and recently. She had increased dose of her venlafaxine with worsening vomiting (vomited x 2) then weakness . Her labs are notable for Na of 131 on adx but otherwise unremarkable. U/A negative.
PLAN:
1. Nausea/Vomiting
- She had associated diarrhea and crampy abdominal pain.
-CT of the abdomen pelvis showed mild acute pancolitis versus underdistention of the colonic lumen but clinically correlating with pancolitis.
-Appreciate GI input who thinks infectious in nature.
-No diarrhea since admission. She is no fever nor white count.
-Spontaneous improvement in her GI symptoms and she is tolerating a diet.
-Unclear if bacterial but with rapid improvement and no signs of fever or white count elevation will treat symptomatically.
-Cleared for discharge if she tolerates solid diet today.
-Patient advised to watch out for any recurrence of diarrhea, abdominal pain or fevers and then report to GI or come back to ER.
-No prior history of chronic diarrhea.
2. Weakness - suspect dehydration
-Improved
3. Anxiety/Depression
- continue venlafaxine 112.5
- continue quetiapine and lorazepam
4.hyponatremia-suspect volume related. Corrected now.
5.pancreatic cyst-follows with GI as outpatient already.
DVT PPX - lovenox sq
Code status - Full Code
DC home today.
Anticipated Discharge: Today
Subjective/Interval History
-
Date of Service: October 25, 2024
No further diarrhea since admission. Denies any abdominal pain. No further vomiting as well. [place] bit nauseous but she was able to have a solid diet this morning for breakfast.
No fever chills.
Objective Data
-
Labs:
Laboratory Results
10/25/24
07:02
WBC 9.4
Hgb 13.0
Hct 38.3
Plt Count 253
Sodium 138
Potassium 3.9
Chloride 102
Carbon Dioxide 25
BUN 5 L
Creatinine 0.5 L
Glucose 90
Calcium 8.6
Vital Signs:
Vital Signs
Temp Pulse Resp BP Pulse Ox
98.1 F 65 17 137/66 97
10/25/24 07:37 10/25/24 07:37 10/25/24 07:37 10/25/24 07:37 10/25/24 07:37
I&O
10/24/24 10/25/24 10/26/24
06:59 06:59 06:59
Intake Total 800 / 800 420 / 420
Output Total 400 / 400
Balance 400 / 400 420 / 420
Review of Systems
-
Constitutional: Denies Fever
Respiratory: Denies Trouble Breathing
Cardiac: Denies Chest Pain
Neuro: Denies Dizzy
Physical Exam
-
General: Comfortable
HEENT: Moist Mucous Membranes
Respiratory: Clear to Auscultation
Cardiac: Regular Rhythm and S1/S2
GI: Soft, Nontender, Nondistended and Normal Bowel Sounds
Neuro: AO x 3
Psych: Calm
Data Reviewed
-
CT Scan: Report Reviewed by me (CT of abdomen pelvis)
Labs: Labs Reviewed by me
--- NOTE | 2024-10-25 10:32 | CM ---
Patient seen at bedside. Patient states that she lives with her in a 2 story home. Patient has a stair glide and a walker but does not use the walker. patient PCP is Dr. Galloway and she has [facility] nurses that visit. Ptaient does not feel
that she needs any supports at discharge. Patient uses the [facility]. Patient was given and completed IMM form placed on chart. CM will continue to follow for discharge planning needs.
Plan; home with no needs.
--- NOTE | 2024-10-25 10:37 | W.DCSUMMARY ---
Discharge Summary
Discharge Data
Date of Admission: 10/25/24
Date of Discharge: 10/25/24
-
Pending Results: No
Hospital Course
Primary diagnosis:
Mild acute pancolitis suspected infectious
Secondary diagnosis:
Anxiety/depression
Pancreatic cyst
Hospital course:
Patient presented with an acute onset of nausea vomiting with bilious emesis and associated nonbloody diarrhea with abdominal pain. No history of chronic diarrhea. She has a pancreatic cyst which has been followed as an outpatient. No recent
travel history, antibiotic use or sick contacts.
She had no fever or chills. No leukocytosis. CT of the abdomen pelvis showed mild acute pancolitis raising concern for infectious etiology.
Symptoms were self-limiting. Past admission she had no further diarrhea. She she had no abdominal pain or vomiting. She has been nauseous but she was started to tolerate diet which was advanced to low residue diet today.
Seen by GI. She had a colonoscopy at [facility] 2 years ago with polyps by report.
Clinical presentation seems to be consistent with infectious enterocolitis. She was treated with supportive care and her symptoms are self-limiting. She did not receive any antibiotics at this current time due to self-limiting nature of her
illness. When she tolerated diet she was discharged home. Advised to watch for any fever, recurrence of abdominal pain or diarrhea.
No changes were made to her medication regimen.
Consultants on board:
GI-Ravi Turpin
Discharge Plan
-
Patient Disposition: Home (Routine Discharge)
Discharge Diagnosis/Procedures: Mild acute pancolitis-suspect infectious
Diet: Low Residue
Additional Diets: Low residue for a week and resume your prior diet
Activity: As tolerated
Driving Restrictions: As prior to admission
Bathing Restrictions: None
Referrals:
Ravi Vuong MD [Active] - in one month
Isael Wasserman DO [Family Provider] - in less than 1 week
Prescriptions:
Continued
lorazepam 1 MG tablet
1 mg PO DAILY@0600
quetiapine 25 MG tablet
25 mg PO HS
pravastatin 40 mg Tablet
40 mg PO QPM
pantoprazole 20 mg Tablet,Delayed Release (Dr/Ec)
40 mg PO DAILY
levothyroxine 100 mcg Tablet
100 mcg PO DAILY@0600
cholecalciferol (vitamin D3) [Vitamin D3] 50 mcg (2,000 unit) Tablet
2,000 unit DAILY
d-mannose 500 mg Capsule
1,000 mg PO DAILY
sennosides [Senokot] 8.6 mg Tablet
8.6 mg PO HSPRN PRN (Reason: constipation)
venlafaxine [Effexor XR] 75 mg Capsule,Extended Release 24hr
75 mg PO DAILY
therapeutic multivitamin Tablet
1 tab PO DAILY
acetaminophen [Tylenol Extra Strength] 500 mg Tablet
1,000 mg PO Q6HPRN PRN (Reason: back pains)
lorazepam 1 mg Tablet
1 mg PO BIDPRN PRN (Reason: axniety)
estradiol [Estrace] 0.01 % (0.1 mg/gram) Cream
1 appful VAGINAL MOWEFR@1999
Discharge Orders:
Discharge Patient (As Directed); Ordered 10/25/24
Ordered By: Arvind Alva
Discharge Date and Time
Print Language: MALAY
[2024-10-25] MEDS: TYLENOL 650 MG PO (10:44)
[2024-10-25 11:30] VITALS: BP 134/69
== END 2024-10-25 13:11 | disposition home or self-care (01) | DRG 392 ==
LOC: 1 ACUTE 10:03
PROVIDERS: Emergency Medicine; ADMITTING PHYSICIAN Internal Medicine; ATTENDING PHYSICIAN Internal Medicine; CONSULT PHYSICIAN Internal Medicine Gastroenterology; EMERGENCY PHYSICIAN Emergency Medicine; FAMILY PHYSICIAN Family Medicine
DX: A09 Infectious gastroenteritis and colitis, unspecified (principal); S32.019A Unspecified fracture of first lumbar vertebra, initial encounter for closed fracture; K86.2 Cyst of pancreas; E87.1 Hypo-osmolality and hyponatremia; F32.A Depression, unspecified; F41.9 Anxiety disorder, unspecified; E86.0 Dehydration; Z85.118 Personal history of other malignant neoplasm of bronchus and lung; Z80.0 Family history of malignant neoplasm of digestive organs; K21.9 Gastro-esophageal reflux disease without esophagitis; E78.00 Pure hypercholesterolemia, unspecified; E89.0 Postprocedural hypothyroidism; K57.30 Diverticulosis of large intestine without perforation or abscess without bleeding; Z85.850 Personal history of malignant neoplasm of thyroid; Z90.2 Acquired absence of lung [part of]; Z90.710 Acquired absence of both cervix and uterus; Z90.49 Acquired absence of other specified parts of digestive tract; Z96.641 Presence of right artificial hip joint; Z88.5 Allergy status to narcotic agent; Z79.890 Hormone replacement therapy; D17.71 Benign lipomatous neoplasm of kidney; K59.00 Constipation, unspecified; M47.819 Spondylosis without myelopathy or radiculopathy, site unspecified; Z88.1 Allergy status to other antibiotic agents; Z79.899 Other long term (current) drug therapy
CPT/HCPCS: 74177; 80048; 80053; 81003; 81015; 83690; 84443; 85025; 93005; 96361; 96374; 96375; 99285; Q9967

== ENCOUNTER → 2024-10-26 12:51 | Outpatient (REF) | payer OTHER, SELFPAY | LOC: REG 12:51 | PROVIDERS: ATTENDING PHYSICIAN Internal Medicine; FAMILY PHYSICIAN Family Medicine | DX: K29.60 Other gastritis without bleeding (principal) | CPT/HCPCS: 87045; 87046; 87427 ==

== ENCOUNTER 2025-03-14 10:28 | Emergency (ER) | payer OTHER, SELFPAY ==
[2025-03-14 10:33] VITALS: BP 109/74
[2025-03-14 11:02] VITALS: BMI 24.1
[2025-03-14 11:38] LABS: Hematocrit 39.8 % (37.0-47.0); Hemoglobin 12.9 g/dL (12.0-16.0); Mean Corp Hgb Conc. 32.4 g/dL (33.0-37.0); Mean Corpuscular Volume 90.9 fL (81.0-99.0); Nucleated Red Blood Cells % 0 %; Platelet Count 228 10^3/uL (130-400); Red Cell Dist. Width 12.8 % (11.5-14.5)
--- NOTE | 2025-03-14 11:49 | ED.GENMED ---
History of Present Illness
General
Chief Complaint: Abdominal Symptoms
Source: patient
Exam Limitations: none
Time Seen by Provider: 03/14/25 10:56
Nursing documentation reviewed up to this point in time: agreed with
History of Present Illness
History of Present Illness:
see MDM
Past History
Past History
ED Past Medical History: Cancer (Thyroid, lung), Hypercholesterolemia and Other (History of diverticulitis, thyroid cancer); Negative HTN, IDDM or NIDDM
ED Past Surgical History: Cholecystectomy, Gynecological (hysterectomy), Orthopedic (Right hip replacement) and Other (Thyroidectomy)
Social History
Tobacco: Non-smoker
Drug: None
Personal:
Living: with family
Employment: Retired
Review of Systems
Review of Systems
Allergies reviewed?: Yes
All Other Systems: Not applicable
Phy Exam
Physical Exam
Physical Exam:
GENERAL: Alert , in no apparent distress
EYE: pupils equal and reactive
NECK: Supple
ENT: o/p clr, mmm.
CARDIAC: Regular rate and rhythm .
LUNGS: Clear breath sounds bilaterally, no acute respiratory distress, no wheezes/rales/rhonchi
ABDOMEN: Soft, lower abd tenderness, mild, no r/g, no cvat, normal bowel sounds
NEUROLOGICAL: Alert and oriented, no focal neuro deficits
SKIN: Warm and dry, skin intact.
MUSCULOSKELETAL: No edema, well perfused.
PSYCH: Normal and appropriate interaction.
Course
Orders/Labs/Results
Orders:
Orders
03/14/25 11:26
Complete Blood Count/With Diff Urgent
Comprehensive Metabolic Panel Urgent
Lipase Urgent
03/14/25 11:44
CT Abd/Pel (IV only)-DH only Urgent
Comment:
Reason For Exam: lower abd pain, h/o diverticulitis
0.9% Sodium Chloride 500 ml [Nss] 500 ml IV BOLUS
03/14/25 12:49
Urinalysis Reflex To Culture Urgent
Date Specimen was Collected: 03/14/25
Time Specimen was Collected: 11:47
03/14/25 13:49
Amoxicillin 875 mg/Clav 125 mg [Augmentin 875 mg/125 mg] 1 tablet PO NOW STA
Abnormal Lab Results
03/14/25
11:26
MCHC 32.4 L g/dL
(33.0-37.0)
MPV 10.6 H fL
(7.4-10.4)
03/14/25 11:26
03/14/25 11:26
Vital Signs
Initial and Last Documented VS:
Initial Vital Signs
Temp Pulse Resp BP Pulse Ox
36.8 C 60 16 109/74 98
03/14/25 10:33 03/14/25 10:33 03/14/25 10:33 03/14/25 10:33 03/14/25 10:33
Last Documented Vital Signs
Temp Pulse Resp BP Pulse Ox
36.8 C 68 18 112/72 99
03/14/25 10:33 03/14/25 14:37 03/14/25 14:37 03/14/25 14:37 03/14/25 14:37
MDM/Problems Addressed
Differential Diagnosis Includes:
see MDM
MDM/Problems Addressed:
Note:
CHIEF COMPLAINT(S)
Sharp abdominal pain and rectal pressure.
HISTORY OF PRESENT ILLNESS
The patient, a female, presented with sharp abdominal pain that began yesterday morning. The pain initially started on the lower abd and was described as 'sharp.' Throughout the day, the pain reoccurred intermittently, which coincided with rectal
pressure and frequent bowel movements. The patient reported small quantities of bowel movements, approximately six times the previous day. A past episode of minor black stools was noted, which the patient attributed to consuming blue Gatorade, as it
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 No current pain was reported during the examination, but tenderness was noted upon palpation, particularly on the left side of the abdomen.
The patient has a 10-year history of watching a pancreatic lesion and expressed concern about potential pancreatitis, although she has not been previously diagnosed with it. Urinary frequency was noted, but the patient denied any urinary tract
infection symptoms. The patient also indicated a history of anxiety and depression, for which she takes medication. Her past medical history includes lung cancer in 2017 and a history of smoking, which ceased four years ago.
The patient denies significant pain at presentation but acknowledges a 'rumbly' sensation in the abdomen. She has a history of diverticulitis but has not needed hospitalization for it. She expressed concerns about a potential bowel obstruction,
though she has never had one or undergone bowel surgery.
PHYSICAL EXAM
- The abdomen is tender upon palpation, particularly more on the left side and center.
- Observed presence of external hemorrhoids.
- Minimal stool was noted on rectal examination, with no visible blood.
Nursing notes reviewed and vital signs reviewed.
PROBLEM LIST
Acute:
- Sharp abdominal pain
- Rectal pressure and frequent bowel movements
PLAN
- Order a CAT scan of the abdomen to evaluate possible diverticulitis or other abdominal pathology.
- Initiate IV fluids to maintain hydration and avoid oral intake until further assessment.
- Obtain blood work and a urine sample to rule out other causes of abdominal pain.
- Monitor the patient closely for any return or worsening of pain.
DIFFERENTIAL DIAGNOSIS
The Differential Diagnosis includes, in no particular order and is not limited to:
- Diverticulitis
- Bowel obstruction
- Pancreatitis
- Gastrointestinal bleed
- Gastroenteritis
- Irritable bowel syndrome
- Hemorrhoids with rectal pressure
- Peptic ulcer disease
- Colorectal cancer
- Urinary tract infection
03/14/25 - 13:43
During the reassessment, it was noted that the patient has incidental findings of small spots in the right lower lung lobe, identified as scarring related to previous lung cancer, and a benign-appearing cyst in the left lobe of the liver. The
pancreatic cyst is stable at 1.7 cm, with no recommended follow-up. The patient presents with diverticulitis, characterized by stranding of fat anterior to the sigmoid colon and posterior to the bladder, without perforation or abscess. Treatment
involves oral antibiotics, specifically Augmentin, twice daily for 7-10 days. The patient is instructed to maintain a bland diet or clear liquids for 24 hours. Probiotics are advised to prevent antibiotic-related diarrhea. Tylenol is recommended for
pain management. Return precautions include seeking medical attention if experiencing new fever, worsening pain, or significant bloody diarrhea. The prescription will be sent to [facility], and the initial dose may be given with or without
food depending on patient preference. The patient recently received treatment with keflex not cipro 1 mo ago for what she thinks was diverticulitis, hence a different antibiotic is suggested for this episode.
*Pulse Oximetry
SaO2: 98
Oxygen Mode of Delivery: Room air
Patient hypoxic: no (98)
*Critical Care Note
Total Time (30-74mins, 75-104mins- exclusive of procedures): Not Applicable
ED Attending Note
-
Portions of this chart may have been created with voice recognition software.� Occasional wrong word or��sound alike� substitutions may have occurred due to the inherent limitations of voice recognition software.
Discharge Plan
Departure
Patient Disposition: Home (Routine Discharge)
Date of Disposition: 03/14/25
Time of Disposition: 13:49
Patient with high blood pressure during this ER visit?: No
Condition: Fair
Covid-19: Not Applicable
Discharge Problem:
Diverticulitis
Instructions: Clear Liquid Diet, Diverticulitis - Discharge instructions
Prescriptions:
New
amoxicillin-pot clavulanate 875-125 mg tablet
1 tab PO BID Qty: 20 0RF
No Action
lorazepam 1 MG tablet
1 mg PO DAILY@0600
pravastatin 40 mg Tablet
40 mg PO QPM
pantoprazole 20 mg Tablet,Delayed Release (Dr/Ec)
40 mg PO DAILY
levothyroxine 100 mcg Tablet
100 mcg PO DAILY@0600
cholecalciferol (vitamin D3) [Vitamin D3] 50 mcg (2,000 unit) Tablet
2,000 unit DAILY
d-mannose 500 mg Capsule
1,000 mg PO DAILY
therapeutic multivitamin Tablet
1 tab PO DAILY
acetaminophen [Tylenol Extra Strength] 500 mg Tablet
1,000 mg PO Q6HPRN PRN (Reason: back pains)
lorazepam 1 mg Tablet
1 mg PO BIDPRN PRN (Reason: axniety)
estradiol [Estrace] 0.01 % (0.1 mg/gram) Cream
1 appful VAGINAL MOWEFR@1999
calcium 600 mg Capsule
600 mg PO DAILY
gabapentin 600 mg Tablet
600 mg PO HS
gabapentin 400 mg Capsule
400 mg PO BID
Rx Instructions:
breakfast and lunch
mirtazapine 15 mg Tablet
15 mg PO HS
escitalopram oxalate [Lexapro] 20 mg Tablet
20 mg PO DAILY
Referrals:
Isael Wasserman DO [Family Provider, Family Practice]
Activity Restrictions/Additional Instructions:
YOUR CAT SCAN SHOWS DIVERTICULITIS
YOU SHOULD EAT A CLEAR LIQUID DIET FOR 24-48 HOURS TO GIVE YOUR BOWELS REST.
Take Augmentin twice a day for 7 to 10 days
Use a probiotic while you are on this medication
YOU CAN FOLLOW UP WITH YOUR FAMILY DOCTOR WELL YOUR COLORECTAL DOCTOR
RETURN FOR: FEVER, WORSE PAIN, VOMITING, INABILITY TO TOLERATE LIQUIDS, BLOODY DIARRHEA OR ANY CONCERNS.
Interventions
Interventions:
*Risk Screen - Suicide Last Done: 03/14/25 10:33
*General Assessment Last Done: 03/14/25 11:03
*Neglect/Abuse Screening Last Done: 03/14/25 10:33
*Nursing Disposition Last Done: 03/14/25 14:38
NQ-Bcfosr-Ubuhifjdeh Assessment Last Done: 03/14/25 11:03
Discharge Date and Time
Discharge Date/Time: 03/14/25 14:39
Print Language: [place]
[2025-03-14 11:51] LABS: ALT (SGPT) 14 U/L (0-35); AST (SGOT) 22 U/L (14-36); Albumin 4.2 g/dl (3.5-5.0); Alkaline Phosphatase 99 U/L (38-126); Blood Urea Nitrogen 9 mg/dl (7-17); Calcium 8.4 mg/dl (8.4-10.2); Carbon Dioxide 29 mmol/L (22-30); Chloride 105 mmol/L (98-107); Estimated Creatinine Clearance 62 ml/min; Glucose 91 mg/dl (70-99); Lipase 54 U/L (23-300); Potassium 4.6 mmol/L (3.5-5.1); Sodium 139 mmol/L (135-145); Total Protein 6.7 g/dl (6.3-8.2); eGFR > 60.00
[2025-03-14] MEDS: NSS 500 IV (11:53)
[2025-03-14 12:59] LABS: Urine Character Clear (Clear)
[2025-03-14] MEDS: AUGMENTIN 875 MG/125 MG 1 TABLET PO (14:12)
[2025-03-14 14:37] VITALS: BP 112/72
== END 2025-03-14 14:39 | disposition home or self-care (01) ==
LOC: EMR 10:28
PROVIDERS: Physician Assistant; EMERGENCY PHYSICIAN Emergency Medicine; FAMILY PHYSICIAN Family Medicine
DX: K57.33 Diverticulitis of large intestine without perforation or abscess with bleeding (principal); K86.2 Cyst of pancreas; E78.00 Pure hypercholesterolemia, unspecified; Z90.49 Acquired absence of other specified parts of digestive tract; Z90.710 Acquired absence of both cervix and uterus; Z90.2 Acquired absence of lung [part of]; Z85.850 Personal history of malignant neoplasm of thyroid; Z85.118 Personal history of other malignant neoplasm of bronchus and lung; Z87.891 Personal history of nicotine dependence
CPT/HCPCS: 96360; 99284; 74177; 80053; 81003; 83690; 85025; Q9967